=== PATIENT | female | born 1950 | race Caucasian/White ===

== ENCOUNTER 2021-05-16 22:02 | Day surgery (SDCO) | payer OTHER ==
[~2021-05-16] VITALS: Ht 177.8 cm; Wt 116.3 kg
[2021-05-16 23:48] LABS: ALBUMIN 3.4 g/dL (3.4-5.0); BILIRUBIN - TOTAL 0.3 mg/dL (0.2-1.0); BUN/CREAT RATIO (CALC) 23.8 RATIO; CREATININE 1.72 mg/dL (0.51-0.95); GLOBULIN (CALCULATION) 3.9 g/dL; POTASSIUM 5.2 mmol/L (3.5-5.1); TOTAL PROTEIN 7.3 g/dL (6.4-8.2)
[2021-05-17 00:09] LABS: BASOPHIL 0.3 % (0-2); EOSINOPHIL 0 % (0-7); HCT 43.4 % (37.0-47.0); HGB 13.1 g/dl (12.5-16.0); LYMPHOCYTE 5.7 % (15-48); MCHC 30.2 g/dL (32.0-36.0); MCV 96.2 fL (78.0-100.0); MONOCYTE 4.5 % (0-12); MPV 11.5 fL (6.0-9.5); NEUTROPHIL 88.5 % (41-80); NRBC 0; PLT 282 K/uL (150-400); RBC 4.51 M/uL (4.20-5.40); RDW 14.6 % (11.5-14.0); WBC 14.4 K/uL (4.0-10.5)
[2021-05-17] MEDS ORDERED: TRAZODONE HCL50 MG PO (06:05)
[2021-05-17] MEDS ORDERED: LEXAPRO10 MG PO (06:05)
[2021-05-17] MEDS ORDERED: BUPRENORPHINE HC8 MG PO ×2 (06:06→06:07)
[2021-05-17] MEDS ORDERED: LASIX20 MG PO (06:07)
[2021-05-17] MEDS ORDERED: BUSPAR5 MG PO (06:08)
[2021-05-17] MEDS ORDERED: NEURONTIN300 MG PO (06:08)
[2021-05-17] MEDS ORDERED: CRESTOR20 MG PO (06:08)
[2021-05-17 06:27] LABS: BASOPHIL 0.1 % (0-2); EOSINOPHIL 0 % (0-7); HCT 44.1 % (37.0-47.0); HGB 13.3 g/dl (12.5-16.0); LYMPHOCYTE 1.2 % (15-48); MCH 29.2 pg (25.0-31.0); MCHC 30.2 g/dL (32.0-36.0); MCV 96.7 fL (78.0-100.0); MPV 11.4 fL (6.0-9.5); NEUTROPHIL 94.1 % (41-80); NRBC 0; PLT 253 K/uL (150-400); RBC 4.56 M/uL (4.20-5.40); RDW 14.6 % (11.5-14.0); WBC 20.3 K/uL (4.0-10.5)
[2021-05-17 06:31] LABS: INR 1.05 (0.9-1.2); PROTHROMBIN TIME 13.1 SECONDS (11.8-13.4)
[2021-05-17 06:43] LABS: ALBUMIN 3.2 g/dL (3.4-5.0); BILIRUBIN - TOTAL 0.5 mg/dL (0.2-1.0); BUN/CREAT RATIO (CALC) 23.1 RATIO; CREATININE 1.69 mg/dL (0.51-0.95); POTASSIUM 5.3 mmol/L (3.5-5.1); TOTAL PROTEIN 7.2 g/dL (6.4-8.2)
[2021-05-18 07:37] LABS: BASOPHIL 0.2 % (0-2); EOSINOPHIL 0.1 % (0-7); HCT 38.9 % (37.0-47.0); HGB 11.7 g/dl (12.5-16.0); LYMPHOCYTE 3.6 % (15-48); MCH 29.4 pg (25.0-31.0); MCHC 30.1 g/dL (32.0-36.0); MCV 97.7 fL (78.0-100.0); MONOCYTE 5.5 % (0-12); MPV 11.2 fL (6.0-9.5); NEUTROPHIL 89.9 % (41-80); NRBC 0; PLT 217 K/uL (150-400); RBC 3.98 M/uL (4.20-5.40); WBC 18.4 K/uL (4.0-10.5)
[2021-05-18 07:50] LABS: ALBUMIN 2.6 g/dL (3.4-5.0); BILIRUBIN - TOTAL 0.6 mg/dL (0.2-1.0); CREATININE 2.04 mg/dL (0.51-0.95); GLOBULIN (CALCULATION) 4.1 g/dL; POTASSIUM 4.9 mmol/L (3.5-5.1); TOTAL PROTEIN 6.7 g/dL (6.4-8.2)
--- NOTE | 2021-05-18 13:28 | NUR ---
05/18/21 Ms. Membreno is from [place]. She is in [place] visiting her son. Ms. Membreno reports that she will be discharged to her son's home in [place]. - Please monitor for 02 needs.
[2021-05-19 09:47] LABS: BASOPHIL 0.1 % (0-2); EOSINOPHIL 0.3 % (0-7); HCT 36.2 % (37.0-47.0); HGB 10.8 g/dl (12.5-16.0); LYMPHOCYTE 4.8 % (15-48); MCH 29.1 pg (25.0-31.0); MCHC 29.8 g/dL (32.0-36.0); MCV 97.6 fL (78.0-100.0); MONOCYTE 5.4 % (0-12); MPV 11.1 fL (6.0-9.5); NEUTROPHIL 88.3 % (41-80); NRBC 0; PLT 196 K/uL (150-400); RBC 3.71 M/uL (4.20-5.40); RDW 14.7 % (11.5-14.0); WBC 13.4 K/uL (4.0-10.5)
[2021-05-19 10:05] LABS: ALBUMIN 2.2 g/dL (3.4-5.0); BILIRUBIN - TOTAL 0.4 mg/dL (0.2-1.0); BUN/CREAT RATIO (CALC) 22.5 RATIO; CREATININE 1.78 mg/dL (0.51-0.95); POTASSIUM 4.4 mmol/L (3.5-5.1); TOTAL PROTEIN 6.2 g/dL (6.4-8.2)
--- NOTE | 2021-05-19 12:53 | NUR ---
PT IS AN OBSERVATION IF PT IS NOT GOING HOME ON THE PLEASE CONSIDER INPT IF SHE IS USING IV PAIN MEDS STILL; CONTINUES TO DECLINE; THANKS
[2021-05-19 18:40] LABS: BILIRUBIN NEGATIVE (NEGATIVE); BLOOD 3+ Ery/uL (NEGATIVE); CLARITY CLEAR (CLEAR); COLOR YELLOW (YELLOW); GLUCOSE (U) NORMAL (NORMAL); LEUKOCYTES 2+ Leu/uL (NEGATIVE); NITRITE NEGATIVE (NEGATIVE); PROTEIN NEGATIVE (NEGATIVE); SPECIFIC GRAVITY 1.015 (1.001-1.030); UROBILINOGEN 0.2 mg/dL (0.2-1.0)
[2021-05-19 19:37] LABS: BACTERIA TRACE; SQUAMOUS EPITHELIAL CELLS RARE
[2021-05-20 04:39] LABS: BASOPHIL 0.4 % (0-2); EOSINOPHIL 2.5 % (0-7); HCT 34.9 % (37.0-47.0); HGB 10.6 g/dl (12.5-16.0); MCH 29.4 pg (25.0-31.0); MCHC 30.4 g/dL (32.0-36.0); MCV 96.7 fL (78.0-100.0); MONOCYTE 8.2 % (0-12); MPV 10.6 fL (6.0-9.5); NEUTROPHIL 80.7 % (41-80); NRBC 0; PLT 195 K/uL (150-400); RBC 3.61 M/uL (4.20-5.40); RDW 14.5 % (11.5-14.0)
[2021-05-20 04:58] LABS: ALBUMIN 2.1 g/dL (3.4-5.0); BILIRUBIN - TOTAL 0.5 mg/dL (0.2-1.0); BUN/CREAT RATIO (CALC) 20.3 RATIO; CREATININE 1.92 mg/dL (0.51-0.95); POTASSIUM 4.1 mmol/L (3.5-5.1); TOTAL PROTEIN 6.1 g/dL (6.4-8.2)
[2021-05-20] MEDS ORDERED: STIMULANT LAXA1 EACH PO (11:20)
[2021-05-20] MEDS ORDERED: AUGMENTIN 875-1 EACH PO (11:20)
[2021-05-20] MEDS ORDERED: OXYCODONE-ACET1 EAC1 PO (11:24)
[2021-05-20] MEDS ORDERED: CLONAZEPAM0.5 MG PO (11:24)
[2021-05-20] MEDS ORDERED: COMBIVENT RESPIM4 GM INH (12:15)
== END 2021-05-20 19:44 | disposition home or self-care (01) ==
LOC: FER 22:02 → FTCU 05-17 02:54
PROVIDERS: Allergy & Immunology Allergy; Emergency Medicine; Nurse Practitioner; ADMIT Internal Medicine
DX: C23 Malignant neoplasm of gallbladder (principal); D13.5 Benign neoplasm of extrahepatic bile ducts; K80.00 Calculus of gallbladder with acute cholecystitis without obstruction; K82.1 Hydrops of gallbladder; A41.9 Sepsis, unspecified organism; N17.9 Acute kidney failure, unspecified; R09.02 Hypoxemia; I10 Essential (primary) hypertension; E87.5 Hyperkalemia; F11.21 Opioid dependence, in remission; G62.9 Polyneuropathy, unspecified; G25.81 Restless legs syndrome; N13.2 Hydronephrosis with renal and ureteral calculous obstruction; N81.10 Cystocele, unspecified; K57.30 Diverticulosis of large intestine without perforation or abscess without bleeding; K59.00 Constipation, unspecified; Z87.891 Personal history of nicotine dependence; Z79.899 Other long term (current) drug therapy; Z20.822 Contact with and (suspected) exposure to COVID-19
CPT/HCPCS: 36415; 71045; 74018; 80053; 81001; 83690; 85025; 85610; 87088; 93005; 94640; 94760; 94762; 97162; 97167; 97530; 97530-GP; 97535; C9113; G0378; J1100; J1170; J1940; J2250; J2405; J2543; J2550; J2704; J2710; J3010; J7030; J7120; Q9967; U0002